=== PATIENT | female | born 1955 | race Hispanic/Latino ===

== ENCOUNTER 2020-05-30 | Emergency (ER) | payer MEDICARE, MEDICAID ==
[~2020-05-30] MED LIST: ALBUTEROL108 MCG/AC IN; ALENDRONATE70 MG PO; ASPIRINCHW 81MG PO; CELEBREX200 MG PO; CLARITIN10 M1 OR; COZAAR25 MG PO; DITROPAN5 MG/TA1 PO; FLOVENT HFA44 MCG IN; GABAPENTIN300 MG OR; GLUCOPHAGE500 MG OR; IPRATROPIU0.5 MG/3 M IN; LEVAQUIN750 MG PO; LIPITOR10 M1 PO; METFORMIN500 M2 OR; METFORMIN500 M2 PO; METFORMIN500 MG PO; NAPROSYN500 MG OR; NEBULIZE4 IN; OMNICEF300 MG PO; OXYBUTYNIN5 M1 PO; PREDNISONE10 MG PO; PRILOSEC40 MG PO; PROVENTIL IN; PROVENTIL0.083 % IN; QVAR40 MCG IN; VENTOLIN HFA IN; VESICARE5 MG PO; ZITHROMAX500 MG PO
[2020-05-30 14:11] LABS: GFR > 60 ML/MIN (>=60 (CALC)); GFR FOR AFR.AMER. > 60 ML/MIN (>=60 (CALC)); HEMATOCRIT 45.7 % (37.0-47.0); MEAN CORPUSCULAR HGB 28.8 pG CALC (26.0-32.0); MEAN CORPUSCULAR HGB CONC 25.6 g/dL CAL (32.0-36.0); NEUT# 11.58 thou/uL (2.00-7.15); RED BLOOD COUNT 4.06 mill/uL (4.20-5.60); RED CELL DISTRI WIDTH 14.5 % (11.5-15.5)
[2020-05-30 14:17] LABS: HEMOGLOBIN 11.7 g/dl (12.0-16.0); IMMATURE GRANULOCYTES 6.9 % (0.0-5.0); MEAN CELL VOLUME 112.6 fL CALC (80.0-100.0)
[2020-05-30 14:28] LABS: INTERNATIONAL NORMALIZED RATIO 1.1 RATIO (0.7-1.3); PROTHROMBIN TIME 11.6 SECONDS (9.0-12.5)
[2020-05-30 15:57] LABS: ALKALINE PHOSPHATASE 75 u/l (38-126); ANION GAP 13 (6-22 (CALC)); BILIRUBIN, TOTAL 0.7 mg/dL (0.0-1.4); BUN 15 mg/dL (8-23); BUN/CREATININE RATIO 24 (12-20 (CALC)); CARBON DIOXIDE 38 mmol/l (22-30); CHLORIDE 91 mmol/l (95-108); CREATININE 0.6 mg/dL (0.5-1.0); GFR > 60 ML/MIN (>=60 (CALC)); GFR FOR AFR.AMER. > 60 ML/MIN (>=60 (CALC)); POTASSIUM 4.5 mmol/l (3.5-5.1); SODIUM 137 mmol/l (137-146)
[2020-05-30 16:06] LABS: ALBUMIN 3.1 g/dL (3.2-5.0); SGOT/AST 118 u/l (9-36); TOTAL PROTEIN 6.2 g/dL (6.3-8.2)
== END 2020-05-30 16:00 | disposition short-term general hospital (02) ==
PROVIDERS: Family Medicine
PROC: 06HY33Z Insertion of Infusion Device into Lower Vein, Percutaneous Approach (ICD-10-PCS; principal; 2020-05-30)
PROC: 0BH17EZ Insertion of Endotracheal Airway into Trachea, Via Natural or Artificial Opening (ICD-10-PCS; 2020-05-30)
PROC: 0T9B70Z Drainage of Bladder with Drainage Device, Via Natural or Artificial Opening (ICD-10-PCS; 2020-05-30)
DX: A41.9 Sepsis, unspecified organism (principal); R65.20 Severe sepsis without septic shock; I46.8 Cardiac arrest due to other underlying condition; J18.9 Pneumonia, unspecified organism; J44.0 Chronic obstructive pulmonary disease with (acute) lower respiratory infection; I10 Essential (primary) hypertension; E11.9 Type 2 diabetes mellitus without complications; Z87.01 Personal history of pneumonia (recurrent); Z79.84 Long term (current) use of oral hypoglycemic drugs; Z20.822 Contact with and (suspected) exposure to COVID-19
CPT/HCPCS: Q9967

== ENCOUNTER 2020-12-10 15:30 | Emergency (ER) | payer MEDICARE, MEDICAID ==
[~2020-12-10] VITALS: Ht 165.1 cm; Wt 79.0 kg
[2020-12-10 16:30] LABS: HEMATOCRIT 45.2 % (37.0-47.0); HEMOGLOBIN 13.1 g/dl (12.0-16.0); IMMATURE GRANULOCYTES 0.5 % (0.0-5.0); MEAN CORPUSCULAR HGB 29.6 pG CALC (26.0-32.0); NEUT# 8.43 thou/uL (2.00-7.15); RED BLOOD COUNT 4.42 mill/uL (4.20-5.60); RED CELL DISTRI WIDTH 13.8 % (11.5-15.5)
[2020-12-10 16:33] LABS: MEAN CELL VOLUME 102.3 fL CALC (80.0-100.0)
[2020-12-10 16:50] LABS: ALKALINE PHOSPHATASE 86 u/l (38-126); BILIRUBIN, TOTAL 0.9 mg/dL (0.0-1.4); BUN 17 mg/dL (8-23); BUN/CREATININE RATIO 31 (12-20 (CALC)); CHLORIDE 93 mmol/l (95-108); CREATININE 0.6 mg/dL (0.5-1.0); GFR > 60 ML/MIN (>=60 (CALC)); GFR FOR AFR.AMER. > 60 ML/MIN (>=60 (CALC)); POTASSIUM 4.7 mmol/l (3.5-5.1); SGOT/AST 71 u/l (9-36); SODIUM 139 mmol/l (137-146)
[2020-12-10 16:56] LABS: ANION GAP 14 (6-22 (CALC)); CARBON DIOXIDE 37 mmol/l (22-30)
[2020-12-10 17:09] LABS: ALBUMIN 4.1 g/dL (3.2-5.0); TOTAL PROTEIN 8.6 g/dL (6.3-8.2)
[2020-12-10] MEDS ORDERED: MEDDOSEPAK PO (17:27)
[2020-12-10 18:05] VITALS: BP 133/64
== END 2020-12-10 18:05 | disposition home or self-care (01) ==
LOC: ED 15:30
DX: J45.901 Unspecified asthma with (acute) exacerbation (principal); J96.12 Chronic respiratory failure with hypercapnia; J96.11 Chronic respiratory failure with hypoxia; E11.9 Type 2 diabetes mellitus without complications; I10 Essential (primary) hypertension; J44.9 Chronic obstructive pulmonary disease, unspecified; Z99.81 Dependence on supplemental oxygen; Z20.822 Contact with and (suspected) exposure to COVID-19

== ENCOUNTER 2021-01-25 22:48 | Inpatient (IN) | payer MEDICARE, MEDICAID ==
[~2021-01-25] VITALS: Ht 152.4 cm; Wt 106.3 kg
[~2021-01-25 22:48] MED LIST changes: +MEDDOSEPAK PO
[2021-01-25 23:42] LABS: HEMATOCRIT 50.7 % (37.0-47.0); HEMOGLOBIN 13.5 g/dl (12.0-16.0); MEAN CORPUSCULAR HGB 29.2 pG CALC (26.0-32.0); MEAN CORPUSCULAR HGB CONC 26.6 g/dL CAL (32.0-36.0); NEUT# 11.21 thou/uL (2.00-7.15); RED BLOOD COUNT 4.63 mill/uL (4.20-5.60); RED CELL DISTRI WIDTH 14.6 % (11.5-15.5)
[2021-01-25 23:45] LABS: IMMATURE GRANULOCYTES 6.9 % (0.0-5.0); MEAN CELL VOLUME 109.5 fL CALC (80.0-100.0)
[2021-01-25 23:54] LABS: ALBUMIN 3.6 g/dL (3.2-5.0); ALKALINE PHOSPHATASE 109 u/l (38-126); AMYLASE 88 u/l (30-110); BILIRUBIN, TOTAL 0.6 mg/dL (0.0-1.4); BUN 20 mg/dL (8-23); BUN/CREATININE RATIO 45 (12-20 (CALC)); CHLORIDE 88 mmol/l (95-108); CREATININE 0.4 mg/dL (0.5-1.0); GFR > 60 ML/MIN (>=60 (CALC)); GFR FOR AFR.AMER. > 60 ML/MIN (>=60 (CALC)); LIPASE 61 u/l (23-300); POTASSIUM 4.9 mmol/l (3.5-5.1); SGOT/AST 55 u/l (9-36); SODIUM 141 mmol/l (137-146); TOTAL PROTEIN 7.9 g/dL (6.3-8.2)
[2021-01-26] VITALS (11 sets, daily range): BP systolic 99–134; BP diastolic 44–73
[2021-01-26] LABS: ANION GAP 5 (6-22 (CALC))
[2021-01-26 00:01] LABS: ACT PARTIAL THROMBO TIME 24.3 SECONDS (20.0-32.5); INTERNATIONAL NORMALIZED RATIO 1.1 RATIO (0.7-1.3)
[2021-01-26 00:02] LABS: CARBON DIOXIDE 53 mmol/l (22-30)
[2021-01-26 00:04] LABS: MYOGLOBIN 15 ng/mL (0 - 62)
[2021-01-26 03:41] LABS: URINE BILIRUBIN - DIPSTICK NEGATIVE (NEGATIVE); URINE BLOOD DIPSTICK NEGATIVE (NEGATIVE); URINE COLOR YELLOW; URINE GLUCOSE - DIPSTICK NEGATIVE (NEGATIVE); URINE KETONE NEGATIVE (NEGATIVE); URINE LEUK ESTERASE NEGATIVE (NEGATIVE); URINE PH 5.5 (4.5-8.0); URINE PROTEIN - DIPSTICK 30 mg/dL (NEG-TRACE); URINE SPECIFIC GRAVITY >=1.030; URINE UROBILINOGEN - DIPSTICK 0.2 E.U./dL (0.2)
[2021-01-26 03:47] LABS: URINE NITRITE - DIPSTICK POSITIVE (Negative)
[2021-01-26 03:49] LABS: URINE BACTERIA MANY hpf; URINE MUCUS FEW hpf (NONE-FEW); URINE SQUAMOUS EPITHELIAL CELL FEW EPI/hpf (0-FEW)
[2021-01-26] MEDS ORDERED: MEVACOR10 MG PO (11:53)
[2021-01-26] MEDS ORDERED: METFORMIN500 M2 PO (11:53)
[2021-01-26] MEDS ORDERED: LORATADINE10 M1 PO (11:53)
[2021-01-26] MEDS ORDERED: PROVENTIL108 MCG/AC PO (11:54)
[2021-01-26] MEDS ORDERED: COZAAR25 MG PO (11:54)
[2021-01-26] MEDS ORDERED: IPRATROPIU0.5 MG/3 M IN (11:55)
[2021-01-26] MEDS ORDERED: ALLERGY NA50 MCG/ACT NS (12:03)
[2021-01-26] MEDS ORDERED: SOLIFENACIN 5 MG PO (12:03)
[2021-01-27] VITALS (23 sets, daily range): BP systolic 122–179; BP diastolic 59–91
[2021-01-27 05:22] LABS: HEMOGLOBIN 12.4 g/dl (12.0-16.0); MEAN CORPUSCULAR HGB 29.1 pG CALC (26.0-32.0); MEAN CORPUSCULAR HGB CONC 28.7 g/dL CAL (32.0-36.0); RED BLOOD COUNT 4.26 mill/uL (4.20-5.60); RED CELL DISTRI WIDTH 15.8 % (11.5-15.5)
[2021-01-27 05:23] LABS: HEMATOCRIT 43.2 % (37.0-47.0); MEAN CELL VOLUME 101.4 fL CALC (80.0-100.0)
[2021-01-27 05:39] LABS: BUN 15 mg/dL (8-23); BUN/CREATININE RATIO 24 (12-20 (CALC)); CHLORIDE 93 mmol/l (95-108); CREATININE 0.6 mg/dL (0.5-1.0); GFR > 60 ML/MIN (>=60 (CALC)); GFR FOR AFR.AMER. > 60 ML/MIN (>=60 (CALC)); MAGNESIUM 1.8 mg/dL (1.6-2.3); SODIUM 143 mmol/l (137-146)
[2021-01-27 05:48] LABS: ANION GAP 8 (6-22 (CALC)); CARBON DIOXIDE 46 mmol/l (22-30); POTASSIUM 3.7 mmol/l (3.5-5.1)
[2021-01-28] VITALS (15 sets, daily range): BP systolic 98–150; BP diastolic 50–80
[2021-01-28 05:51] LABS: MEAN CELL VOLUME 105.8 fL CALC (80.0-100.0); MEAN CORPUSCULAR HGB 28.8 pG CALC (26.0-32.0); MEAN CORPUSCULAR HGB CONC 27.3 g/dL CAL (32.0-36.0); RED BLOOD COUNT 4.16 mill/uL (4.20-5.60); RED CELL DISTRI WIDTH 16.1 % (11.5-15.5)
[2021-01-28 06:23] LABS: BUN 18 mg/dL (8-23); BUN/CREATININE RATIO 28 (12-20 (CALC)); CHLORIDE 95 mmol/l (95-108); CREATININE 0.6 mg/dL (0.5-1.0); GFR > 60 ML/MIN (>=60 (CALC)); GFR FOR AFR.AMER. > 60 ML/MIN (>=60 (CALC)); SODIUM 145 mmol/l (137-146)
[2021-01-28 06:29] LABS: ANION GAP 5 (6-22 (CALC)); POTASSIUM 3.8 mmol/l (3.5-5.1)
[2021-01-28 06:41] LABS: CARBON DIOXIDE 49 mmol/l (22-30)
[2021-01-29] VITALS: BP 137/80
[2021-01-29 04:00] VITALS: BP 124/73
[2021-01-29 06:27] LABS: BUN 20 mg/dL (8-23); BUN/CREATININE RATIO 30 (12-20 (CALC)); CHLORIDE 92 mmol/l (95-108); CREATININE 0.7 mg/dL (0.5-1.0); GFR > 60 ML/MIN (>=60 (CALC)); GFR FOR AFR.AMER. > 60 ML/MIN (>=60 (CALC)); MAGNESIUM 2.1 mg/dL (1.6-2.3); POTASSIUM 3.6 mmol/l (3.5-5.1); SODIUM 145 mmol/l (137-146)
[2021-01-29 06:28] LABS: HEMATOCRIT 45.1 % (37.0-47.0); HEMOGLOBIN 12.4 g/dl (12.0-16.0); MEAN CELL VOLUME 106.1 fL CALC (80.0-100.0); MEAN CORPUSCULAR HGB 29.2 pG CALC (26.0-32.0); MEAN CORPUSCULAR HGB CONC 27.5 g/dL CAL (32.0-36.0); RED BLOOD COUNT 4.25 mill/uL (4.20-5.60); RED CELL DISTRI WIDTH 15.6 % (11.5-15.5)
[2021-01-29 06:33] LABS: ANION GAP 8 (6-22 (CALC))
[2021-01-29 06:53] LABS: CARBON DIOXIDE 49 mmol/l (22-30)
[2021-01-29 07:30] VITALS: BP 120/73
[2021-01-29] MEDS ORDERED: PREDNISONE20 MG PO (12:23)
[2021-01-29] MEDS ORDERED: OMNICEF300 MG PO (12:24)
[2021-01-29] MEDS ORDERED: ZITHROMAX250 MG PO (12:25)
== END 2021-01-29 14:20 | disposition home or self-care (01) | DRG 193 ==
LOC: ED 22:48 → ED-I 01-26 03:30 → ED 01-26 03:55 → ICU 01-26 03:56 → MS2 01-28 17:45
PROVIDERS: Family Medicine; ADMIT Hospitalist; ATTEND Hospitalist
PROC: 5A09357 Assistance with Respiratory Ventilation, Less than 24 Consecutive Hours, Continuous Positive Airway Pressure (ICD-10-PCS; principal; 2021-01-25)
PROC: 0T9B70Z Drainage of Bladder with Drainage Device, Via Natural or Artificial Opening (ICD-10-PCS; 2021-01-26)
PROC: 06HY33Z Insertion of Infusion Device into Lower Vein, Percutaneous Approach (ICD-10-PCS; 2021-01-26)
DX: J18.9 Pneumonia, unspecified organism (principal); J96.22 Acute and chronic respiratory failure with hypercapnia; J96.21 Acute and chronic respiratory failure with hypoxia; J44.0 Chronic obstructive pulmonary disease with (acute) lower respiratory infection; E66.2 Morbid (severe) obesity with alveolar hypoventilation; J45.901 Unspecified asthma with (acute) exacerbation; E87.2 Acidosis; N39.0 Urinary tract infection, site not specified; Z68.43 Body mass index [BMI] 50.0-59.9, adult; I10 Essential (primary) hypertension; E11.9 Type 2 diabetes mellitus without complications; K21.9 Gastro-esophageal reflux disease without esophagitis; B96.20 Unspecified Escherichia coli [E. coli] as the cause of diseases classified elsewhere; Z99.81 Dependence on supplemental oxygen; Z87.01 Personal history of pneumonia (recurrent); Z78.1 Physical restraint status; Z79.84 Long term (current) use of oral hypoglycemic drugs; Z20.822 Contact with and (suspected) exposure to COVID-19
CPT/HCPCS: J1650; J2060; Q9967; S0164; S0166

== ENCOUNTER 2021-01-30 19:08 | Inpatient (IN) | payer MEDICARE, MEDICAID ==
[~2021-01-30] VITALS: Ht 152.4 cm; Wt 102.0 kg
[~2021-01-30 19:08] MED LIST changes: +ALLERGY NA50 MCG/ACT NS; +LORATADINE10 M1 PO; +MEVACOR10 MG PO; +PREDNISONE20 MG PO; +PROVENTIL108 MCG/AC PO; +SOLIFENACIN 5 MG PO; +ZITHROMAX250 MG PO
--- NOTE | 2021-01-30 19:08 | NUR ---
PT TO ROOM 6 VIA EMS STRECTHER ON RESP DISTRESS PT OBTUNDED, MD AT BEDSIDE NO IV ACCESS, ALL MONITOROING EQUIPMENT APPLIED AND WILL ATTEMPT IV ACCESS RT PAGED AND EN ROUTE TO UNIT.
[2021-01-30 19:57] LABS: HEMOGLOBIN 13.5 g/dl (12.0-16.0); IMMATURE GRANULOCYTES 2.7 % (0.0-5.0); MEAN CORPUSCULAR HGB 29.5 pG CALC (26.0-32.0); MEAN CORPUSCULAR HGB CONC 26.2 g/dL CAL (32.0-36.0); NEUT# 10.63 thou/uL (2.00-7.15); RED BLOOD COUNT 4.57 mill/uL (4.20-5.60); RED CELL DISTRI WIDTH 15.1 % (11.5-15.5)
[2021-01-30 19:59] LABS: HEMATOCRIT 51.6 % (37.0-47.0); MEAN CELL VOLUME 112.9 fL CALC (80.0-100.0)
--- NOTE | 2021-01-30 20:00 | NUR ---
PT REMAINS OBTUNDED BI-PAP REMAINS IN PLACE O2 SATS 99%. PLANNED ADMISSION, MORRIS CATH INSERTED AND IMMEDIATE RETURN OF CLEAR YELLOW URINE,CATH SECURITY DEVICE ATTACHED TO LEFT UPPER THIGH. PT TOLERATED WITHOUT INCIDENT.
[2021-01-30 20:12] LABS: ALBUMIN 3.5 g/dL (3.2-5.0); ALKALINE PHOSPHATASE 87 u/l (38-126); BILIRUBIN, TOTAL 0.6 mg/dL (0.0-1.4); BUN 33 mg/dL (8-23); BUN/CREATININE RATIO 55 (12-20 (CALC)); CHLORIDE 90 mmol/l (95-108); CREATININE 0.6 mg/dL (0.5-1.0); GFR > 60 ML/MIN (>=60 (CALC)); GFR FOR AFR.AMER. > 60 ML/MIN (>=60 (CALC)); SGOT/AST 61 u/l (9-36); SODIUM 143 mmol/l (137-146); TOTAL PROTEIN 7.2 g/dL (6.3-8.2)
[2021-01-30 20:20] LABS: ANION GAP 6 (6-22 (CALC)); POTASSIUM 4.7 mmol/l (3.5-5.1)
[2021-01-30 20:21] LABS: CARBON DIOXIDE 52 mmol/l (22-30)
[2021-01-30 20:24] LABS: MYOGLOBIN 32 ng/mL (0 - 62)
[2021-01-30 20:25] LABS: URINE BILIRUBIN - DIPSTICK NEGATIVE (NEGATIVE); URINE BLOOD DIPSTICK NEGATIVE (NEGATIVE); URINE COLOR YELLOW; URINE GLUCOSE - DIPSTICK NEGATIVE (NEGATIVE); URINE KETONE NEGATIVE (NEGATIVE); URINE LEUK ESTERASE NEGATIVE (NEGATIVE); URINE PROTEIN - DIPSTICK 30 mg/dL (NEG-TRACE); URINE SPECIFIC GRAVITY >=1.030; URINE UROBILINOGEN - DIPSTICK 0.2 E.U./dL (0.2)
[2021-01-30 20:28] LABS: URINE NITRITE - DIPSTICK NEGATIVE (Negative); URINE RBC 0-2 RBC/hpf (0-5); URINE WBC 0-2 WBC/hpf (0-5)
[2021-01-30 20:29] LABS: URINE SQUAMOUS EPITHELIAL CELL FEW EPI/hpf (0-FEW)
--- NOTE | 2021-01-30 21:05 | NUR ---
PT RESTING, TOLERATING BI PAP AND NO S/S OF DISTRESS NOTED, FAMILY LEFT FROM WAITING ROOM.
--- NOTE | 2021-01-30 22:10 | NUR ---
PT RESTING WITH EYES CLSOED, NO CHANGES NOTED, NO S/S OF DISTRESS.
--- NOTE | 2021-01-30 23:00 | NUR ---
PT RESTING, NO CHANGES TO RESPIRATORY STATUS, CONTINUES TO TOLERATE BI PAP W/O INCIDENT.
[2021-01-31] VITALS (22 sets, daily range): BP systolic 93–146; BP diastolic 53–79
--- NOTE | 2021-01-31 00:17 | NUR ---
PLANNED ADMISSION, IVF INFUSING AT [facility] VIA IO IN R TIB PLATEAU. LASI ADMINISTERED EARLIER WITH GOOD URINE OUTPUT, PT ALSO GIVEN ABT ORDERED PT HAS 20G LAC TOLERAT AZITHROMYCIN VIA THIS SITE WITHOUT INCIDENT,
--- NOTE | 2021-01-31 01:26 | NUR ---
2100 ML CLEAR YELLOW URINE DUMPED FOM MORRIS PT AWAKE REQUESTING WATER. EDUCATED REGARDING THE IMPORTANCE OF KEEPING BI PAP ON AND LFUID INTAKE REDUCTION RELATED TO DX OF PULMONARY EDEMA.
--- NOTE | 2021-01-31 01:47 | NUR ---
REPORT CALLED TO ICU BED 5 ASSIGNED.
--- NOTE | 2021-01-31 02:10 | NUR ---
PT RESTING WITH EYES CLOSED, VS STABLE NO S/S OF DISTRESS CONTINUES TO TOLERATE BIPAP
--- NOTE | 2021-01-31 02:10 | NUR ---
RECEIVED PATIENT TO ICU 5 VIA STRETCHER ON BIPAP. SETTING OF 20/10, RATE OF 20, FIO2 100%; SATURATION OF 95%. PATIENT AWAKE, ORIENTED TO SELF. VSS. LUNGS ARE DIMINISHED. HEART SOUNDS REGULAR. ABDOMEN SOFT, DISTENDED NON TENDER TO TOUCH; BOWEL SOUNDS HYPOACTIVE. PULSES WEAK BILATERALLY, BRUISING NOTED OF THE HANDS BILATERALLY, COOL TO TOUCH. RIGHT TIBIAL IO, PATENT; DRESSING CLEAN AND INTACT. GENERALIZED EDEMA NOTED. MORRIS TO GRAVITY CLEAR KELSEY URINE. PATIENT DENIES PAIN AT THIS TIME, NO DISTRESS NOTED. CALL LIGHT WITHIN REACH. BED IN LOW POSITION, LOCK AND ALARM ACTIVATED.
--- NOTE | 2021-01-31 02:15 | NUR ---
PT TRANSPORTED TO ICU BED 5 VIA STRETCHER WITH R.T. ASSIST. ALL BELONGINGS SENT WITH PATIENT.
--- NOTE | 2021-01-31 04:54 | NUR ---
RESTING QUIETLY IN BED, EYES CLOSED. SATURATION 94% ON BIPAP, TOLERATING WELL. NON-VERBAL BEHAVIOR DOES NOT REFLECT PAIN. VSS.
[2021-01-31 05:45] LABS: HEMOGLOBIN 12.4 g/dl (12.0-16.0); MEAN CELL VOLUME 108.7 fL CALC (80.0-100.0); MEAN CORPUSCULAR HGB 29.3 pG CALC (26.0-32.0); RED BLOOD COUNT 4.23 mill/uL (4.20-5.60)
[2021-01-31 05:56] LABS: BUN 28 mg/dL (8-23); BUN/CREATININE RATIO 52 (12-20 (CALC)); CHLORIDE 86 mmol/l (95-108); CREATININE 0.5 mg/dL (0.5-1.0); GFR > 60 ML/MIN (>=60 (CALC)); GFR FOR AFR.AMER. > 60 ML/MIN (>=60 (CALC)); MAGNESIUM 1.8 mg/dL (1.6-2.3); POTASSIUM 3.8 mmol/l (3.5-5.1); SODIUM 142 mmol/l (137-146)
[2021-01-31 06:03] LABS: ANION GAP 4 (6-22 (CALC))
[2021-01-31 06:04] LABS: CARBON DIOXIDE 56 mmol/l (22-30)
--- NOTE | 2021-01-31 06:55 | NUR ---
TITRATED NIV PARAMTERS PER PT SPO2 AND ASSESSMENT. IVA WELL AT THIS TIME.
--- NOTE | 2021-01-31 07:25 | NUR ---
pt awake in bed; no apparent distress noted; pt offers no complaints; assessment completed at this time; pt alert to person only; denies pain; no n/v noted; resp even and unlabored; lungs clear/diminished; skin color wnl; bipap intact with settings of 18/8, rate 20, 50% FiO2; hr reg; strong pulses; no edema noted to lower extremities; bilat hands noted swollen; abd soft with bs present; no bm noted per customs entry writer; zimmer to gravity draining clear yellow urine; #20 saline locked to lac; IO present to right leg; no redness or edema noted at site; bruising noted to hands; plan of care/ am meds explained; call light within reach; will continue to monitor
--- NOTE | 2021-01-31 08:02 | NUR ---
resting in bed with eyes closed; bipap intact and maintained; zimmer to gravity; sr on monitor; call light within reach
--- NOTE | 2021-01-31 08:34 | NUR ---
pt has removed bipap mask; srt with pvc on monitor; o2 sat dropped to 67%; staff attempting to reapply mask; pt grabbing staff hands and yelling "I want to go home"; mask reapplied and pt recovered quickly; RT at bedside to assist
--- NOTE | 2021-01-31 08:49 | NUR ---
placed pt on hhfnc. initiated at 40l and 100% and titrated as per pt comfort and spo2. humberto well at this time. oil rig roughneck to titrte as needed. with goal to wean to nasal cannula.
--- NOTE | 2021-01-31 08:55 | NUR ---
am meds explained and administered; #20 to rac leaking when flushed; pt admits to pain at site, site removed with catheter tip intact; pt screams out loudly when IO is flushed; pt request site to be removed; 2 unsuccessful attempts made per this verse writer; #22 in lfa x2 attempts per SHAHNAZ Peralta; will continue to monitor
--- NOTE | 2021-01-31 09:01 | NUR ---
Dr Watt present at bedside to assess pt and discuss plan of care
--- NOTE | 2021-01-31 10:00 | NUR ---
awake in bed eating breakfast; pt has removed vapotherm, desats very quickly to low 70s; reapplied; st on monitor; zimmer to gravity; call light within reach; will continue to monitor
--- NOTE | 2021-01-31 11:04 | NUR ---
nad. vss. pt asking if is coming
--- NOTE | 2021-01-31 11:13 | NUR ---
pt continues to remove o2/vapotherm; o2 sat drop to 60s; staff x2 at bedside attempting to reapply; pt striking out at staff; o2 reapplied and pt immediately removes it; Dr Watt called per science writer; restraints to be initiated;
--- NOTE | 2021-01-31 11:45 | NUR ---
pt awake in bed; repositioned per self; meal set up; Dr Watt present at bedside; zimmer to gravity; st on monitor; vapotherm intact
--- NOTE | 2021-01-31 12:00 | NUR ---
pt found to have removed vapotherm; o2 sat down to 44%; reapplied with quick recovery; will continue to monitor
--- NOTE | 2021-01-31 12:10 | NUR ---
spouse returned call to this job specification writer; spouse updated on pt condition/status; spouse informed of need to restrain pt due to continuously removing oxygen and becoming combative with staff when attempting to reapply; spouse informed of visitation policy, states "I don't have time today"; call transferred to portable phone, spouse speaking with patient; will continue to monitor
--- NOTE | 2021-01-31 12:30 | NUR ---
pt has removed o2; o2 sat 54%; reapplied; restraints placed to bilat wrist
--- NOTE | 2021-01-31 13:00 | NUR ---
pt has managed to partially remove vapotherm; reapplied; o2 sat very slow to recover; RT notified; vapotherm titrated; restraints reinforced; repositioned; po fluids given
--- NOTE | 2021-01-31 13:51 | NUR ---
titrated paramters as pe pt spo2. spo2 decreased as pt falling asleep. pt c hx of juana.
--- NOTE | 2021-01-31 14:10 | NUR ---
awake in bed; son Chivo present at bedside; no apparent distress noted; restraints intact and maintained; po fluids provided; st on monitor; iv intact; zimmer to gravity; vapotherm intact and maintained; call light within reach; will continue to monitor
--- NOTE | 2021-01-31 16:00 | NUR ---
pt awake in bed; yells out frequently; po fluids provided; sr/st on monitor; restraints continued; restraints released for nursing care/rom; pt immed attempts to get out of bed to right side; repositioned; o2 per vapotherm; will continue to monitor
--- NOTE | 2021-01-31 16:35 | NUR ---
pt noted SVT 160s; staff at bedside; pt able to blow through straw and hr converted to nsr after approx 1 minute; pt with complaints of chest pain afterwards; no distress noted; Dr Watt informed of above findings and orders received;
--- NOTE | 2021-01-31 17:11 | NUR ---
PT C NAD. VSS. EKG PERFORMED PER PT C/O C.P NOW STATES RESOLVED. DIRECTOR WEB TO MONITOR.
--- NOTE | 2021-01-31 18:05 | NUR ---
awake in bed eating dinner; no apparent distress noted; restraint continued; st on monitor; zimmer to gravity; call light within reach
--- NOTE | 2021-01-31 18:50 | NUR ---
GERRI RECEIVED FROM SHAHNAZ RUBIO.
--- NOTE | 2021-01-31 20:32 | NUR ---
ASSESSMENT COMPLETE. PATIENT RESTING IN BED, ALERT AND ORIENTED. VSS. BILATERAL SOFT WRIST RESTRAINTS APPLIED WITH QUICK RELEASE KNOT AND 2 FINGERWIDTHS LOOSE. MORRIS TO GRAVITY, PATENT. NO C/O PAIN AT THIS TIME. CALL LIGHT WITHIN REACH.
[2021-02-01] VITALS (11 sets, daily range): BP systolic 110–137; BP diastolic 56–70
--- NOTE | 2021-02-01 00:24 | NUR ---
PATIENT RESTING QUIETLY. RESTRAINTS RELEASED TO ASSIST WITH RANGE OF MOTION, PATIENT TOLERATED FAIR. DENIES PAIN AT THIS TIME, CALL LIGHT WITHIN REACH.
--- NOTE | 2021-02-01 02:10 | NUR ---
RESTING QUIETLY IN BED EYES CLOSED. SATURATION 94% ON VAPOTHERM, TOLERATING WELL NO DISTRESS NOTED.
--- NOTE | 2021-02-01 04:06 | NUR ---
PATIENT RESTING QUIETLY, EYES CLOSED. PATIENT AWAKENED, WRIST RESTRAINTS RELEASED TO PERFORM RANGE OF MOTION THEN RE-APPLIED. SATURATION 95% ON VAPOTHERM, TOLERATING WELL. CALL LIGHT WITHIN REACH.
[2021-02-01 06:19] LABS: HEMATOCRIT 43.9 % (37.0-47.0); HEMOGLOBIN 12.4 g/dl (12.0-16.0); MEAN CELL VOLUME 102.3 fL CALC (80.0-100.0); MEAN CORPUSCULAR HGB 28.9 pG CALC (26.0-32.0); MEAN CORPUSCULAR HGB CONC 28.2 g/dL CAL (32.0-36.0); RED BLOOD COUNT 4.29 mill/uL (4.20-5.60); RED CELL DISTRI WIDTH 15.4 % (11.5-15.5)
[2021-02-01 06:29] LABS: BUN 24 mg/dL (8-23); BUN/CREATININE RATIO 47 (12-20 (CALC)); CHLORIDE 77 mmol/l (95-108); CREATININE 0.5 mg/dL (0.5-1.0); GFR > 60 ML/MIN (>=60 (CALC)); GFR FOR AFR.AMER. > 60 ML/MIN (>=60 (CALC)); MAGNESIUM 1.7 mg/dL (1.6-2.3); SODIUM 138 mmol/l (137-146)
[2021-02-01 06:41] LABS: ANION GAP 1 (6-22 (CALC))
[2021-02-01 06:42] LABS: CARBON DIOXIDE 63 mmol/l (22-30)
--- NOTE | 2021-02-01 07:34 | NUR ---
PT REPORT RECEIVED FROM Yan CHAVIS RN. PT AWAKE AND ALERT, CONFUSED. CRITICAL RESULT OF CO2 CALLED TO DR. KAUR. NO CHANGE TO POC. PT VSS, RESTRAINTS REMAIN IN PLACE, NEUROVASCULAR IS WNL. WILL CONTINUE TO MONITOR SAFETY.
--- NOTE | 2021-02-01 10:00 | NUR ---
PT RESTING IN BED SEMI-FOWLERS. RESTRAINTS IN PLACE. MD IN TO SEE PT. ZYPREXA ADDED TO EMAR FOR AGITATION. VSS. PT OXYGEN REMAINS IN PLACE. WILL CONTINUE TO MONITOR.
--- NOTE | 2021-02-01 12:36 | NUR ---
ALL CHARTING FROM [id number] SHOULD BE UNDER SHAHNAZ RUBIO. NOT SHAHNAZ MARQUEZ.
--- NOTE | 2021-02-01 13:00 | NUR ---
PT YELLING FROM ROOM FOR HELP TO USE BEDPAN. PT PLACED ON BED WOLFF. UNCOOPERATIVE WITH TURNING, TRYING TO TAKE LEGS OOB AND GET UP. WILL CONTINUE TO MONITOR SAFETY.
--- NOTE | 2021-02-01 13:47 | NUR ---
PT ASKED IF COMPLETE WITH BED WLOFF, PT STATES "NO, I DONT WANT TO POOP" UNCOOPERATIVE OF ASSISTING WITH REMOVAL, STATES "NO, JUST LEAVE IT THERE, IT HAS A HOLE." PT REMOVED FROM BED WOLFF. EDUCATED OF PRESSURE ULCER PREVENTION. WILL NEED CONTINUEAL REINFORCEMENT.
--- NOTE | 2021-02-01 14:13 | NUR ---
FAMILY AT BS FOR APPROXIMATELY 10 MINUTES. DENIES NEED FOR UPDATE TO POC. PT REMAINS IN BED, CALM. WILL CONTINUE TO MONITOR SAFETY.
--- NOTE | 2021-02-01 17:59 | NUR ---
PT REFUSED TO EAT DINNER MEAL. STARTED YELLING AND SCREAMING "I WANT TO GO HOME!" PT UNRECONCILABLE AT THIS TIME. REFUSING ALL MEALS TODAY. SAFETY REVIEWED, RESTRAINTS IN PLACE. WILL CONTINUE TO MONITOR SAFETY.
--- NOTE | 2021-02-01 18:45 | NUR ---
GERRI RECEIVED FROM SHAHNAZ RUBIO
--- NOTE | 2021-02-01 20:40 | NUR ---
ASSESSMENT COMPLETE. VSS. NO DISTRESS NOTED, DENIES PAIN AT THIS TIME. PATIENT WITH BILATERAL WRIST RESTRAINTS.
--- NOTE | 2021-02-01 23:45 | NUR ---
PATIENT FOUND WITH RIGHT WRIST RESTRAINT OFF AND REACHING TO REMOVE LEFT RESTRAINT. PATIENT HAS ALSO REMOVED HER NASAL CANNULA, SATURATION 87% . PATIENT STATES "I AM LEAVING AND GOING TO THE HOSPITAL I ALWAYS GO TO". REDIRECTON PROVIDED AND RESTRAINTS REAPPLIED.
[2021-02-02] VITALS (14 sets, daily range): BP systolic 88–157; BP diastolic 49–72
--- NOTE | 2021-02-02 03:50 | NUR ---
SATURATION DROPPED TO 81% UPON ARRIVAL TO ROOM, PATIENT LAYING IN BED VAPOTHERM IN PLACE. PATIENT OBTUNDED, SKIN APPEARANCE DUSKY AROUND NOSE AND MOUTH SATURATION CONSTANTLY DROPPING; RAPID RESPONSE CALLED. PATIENT PLACED ON BIPAP 18/10, RATE 24, O2 100%. SATURATION IMMEDIATELY DANNY TO 85 AND IMPROVING; WILL CONTINUE TO MONITOR.
--- NOTE | 2021-02-02 04:01 | NUR ---
RESPONDED TO RAPID RESPONSE. O2 SATS DROPPED BELOW 70. PLACED ON BIPAP.
--- NOTE | 2021-02-02 04:09 | NUR ---
SATURATION 96% ON BIPAP
[2021-02-02 05:32] LABS: HEMATOCRIT 47.2 % (37.0-47.0); HEMOGLOBIN 13.7 g/dl (12.0-16.0); MEAN CELL VOLUME 100.4 fL CALC (80.0-100.0); MEAN CORPUSCULAR HGB 29.1 pG CALC (26.0-32.0); RED BLOOD COUNT 4.7 mill/uL (4.20-5.60); RED CELL DISTRI WIDTH 15.6 % (11.5-15.5)
[2021-02-02 05:46] LABS: BUN 25 mg/dL (8-23); BUN/CREATININE RATIO 45 (12-20 (CALC)); CHLORIDE 78 mmol/l (95-108); CREATININE 0.6 mg/dL (0.5-1.0); GFR > 60 ML/MIN (>=60 (CALC)); GFR FOR AFR.AMER. > 60 ML/MIN (>=60 (CALC)); MAGNESIUM 1.9 mg/dL (1.6-2.3); POTASSIUM 3.6 mmol/l (3.5-5.1); SODIUM 138 mmol/l (137-146)
[2021-02-02 05:54] LABS: ANION GAP 6 (6-22 (CALC))
[2021-02-02 06:00] LABS: CARBON DIOXIDE 58 mmol/l (22-30)
--- NOTE | 2021-02-02 06:11 | NUR ---
PATIENT MANAGED TO GET BIPAP MASK OFF WHILE IN RESTRAINTS. SATURATION DOWN TO 85% LIPS DUSKY. WHILE REAPPLYING MASK PATIENT STATES "NO I DON'T WANT IT". DISCUSSED OPTION OF DNR WITH PATIENT AND THE NEED TO DISCUSS HER FINAL DECISION WITH PHYSICIAN AND FAMILY.
--- NOTE | 2021-02-02 07:10 | NUR ---
RESTING IN BED. CHEST RISING AND FALLING.
--- NOTE | 2021-02-02 07:20 | NUR ---
SOFT WRIST RESTRAINTS REMOVED.
--- NOTE | 2021-02-02 09:48 | NUR ---
SWITCHED FROM BIPAP TO VAPOTHERM 20L 90%
--- NOTE | 2021-02-02 11:19 | NUR ---
PT FOUND ON VAPOTHERM 20L @ 90%. SATS 94
--- NOTE | 2021-02-02 12:14 | NUR ---
SITTING UP HAVING LUNCH AT THIS TIME.
--- NOTE | 2021-02-02 12:57 | NUR ---
UP TO BSC WITH 2 PERSON ASSIST. LG BROWN FORMED STOOL NOTED.
--- NOTE | 2021-02-02 14:42 | NUR ---
IN VISITING AT BEDSIDE.
--- NOTE | 2021-02-02 15:15 | NUR ---
PRN CEPACOL GIVEN PER PT REQUEST.
--- NOTE | 2021-02-02 17:25 | NUR ---
REQUEST ANOTHER CEPACOL.
--- NOTE | 2021-02-02 18:05 | NUR ---
SITTING UP HAVING DINNER AT THIS TIME.
--- NOTE | 2021-02-02 21:31 | NUR ---
PT MEDICATED ORDERS PROVIDE WITH ANTIBIOTIC THERAPY AND NIGHT TIME MEDICATIONS. ASSISTED PT CLEAN UNDER ABD AND BREAST FOLDS AND APPLIED NYSTATIN TO FOLD AREA. THESE AREAS WERE CLEAN AND APPEARED HEALTHY SKIN/NON-REDDENED. PT LOC TO SELF, YEAR, CIRCUMSTANCE AND LOCATION. REPORTS FEELING MUCH BETTER THAN LAST NIGHT. PT REMAINS ON VAPO-THERM 70% AT THIS TIME.
--- NOTE | 2021-02-02 22:24 | NUR ---
pt called asking for a "blanket under her butt" pt positioned on pillow, she somewhat confused as to what we are doing, but agreed to keep pillow positioned to right side for awhile to relieve pressure. Refused to be further positioned. In high fowlers watching tv
[2021-02-03] VITALS (21 sets, daily range): BP systolic 84–190; BP diastolic 49–81
--- NOTE | 2021-02-03 | NUR ---
RESP IN ROOM PLACING PT ON BIPAP. PO FLUIDS PROVIDED PRIOR TO PLACEMENT.
--- NOTE | 2021-02-03 00:50 | NUR ---
PT OBSERVED PULLING ON BIPAP MASK CAUSING 02 SATS TO DROP TO 70'S, OXYGEN SAT LEVELS RECOVERED TO 90% PRIOR TO MY LEAVING THE ROOM. PT REMINDED THAT SHE NEEDS THIS ON. SHE WAS ALSO ASSISTED DRINKING WATER AT THIS TIME.
--- NOTE | 2021-02-03 03:45 | NUR ---
PT ATTEMPTING TO REMOVE BIPAP, I ASSISTED HER REPOSITIONING IT. PT IS LEFT CALMLY W/BIPAP ON.
--- NOTE | 2021-02-03 05:56 | NUR ---
PT IS SLEEPING, AWOKE TO MY TOUCH, RETURNED QUICKLY BACK TO SLEEP. BIPAP IN PLACE
[2021-02-03 06:26] LABS: HEMATOCRIT 44.3 % (37.0-47.0); HEMOGLOBIN 13.5 g/dl (12.0-16.0); IMMATURE GRANULOCYTES 0.6 % (0.0-5.0); MEAN CELL VOLUME 95.5 fL CALC (80.0-100.0); MEAN CORPUSCULAR HGB 29.1 pG CALC (26.0-32.0); MEAN CORPUSCULAR HGB CONC 30.5 g/dL CAL (32.0-36.0); NEUT# 8.98 thou/uL (2.00-7.15); RED BLOOD COUNT 4.64 mill/uL (4.20-5.60); RED CELL DISTRI WIDTH 15.6 % (11.5-15.5)
[2021-02-03 06:38] LABS: CREATININE 1.2 mg/dL (0.5-1.0); MAGNESIUM 1.8 mg/dL (1.6-2.3); POTASSIUM 3.2 mmol/l (3.5-5.1)
--- NOTE | 2021-02-03 07:28 | NUR ---
RECIEVED REPORT FROM OFF GOING NURSE. PT SWITCHED FROM BIPAP TO VAPOTHERM 20L 70%.
--- NOTE | 2021-02-03 07:44 | NUR ---
SITTING IN BED HAVING BREAKFAST.
--- NOTE | 2021-02-03 08:38 | NUR ---
DR DUARTE IN ROUNDING ON PT.
--- NOTE | 2021-02-03 09:51 | NUR ---
AM MEDS GIVEN PER EMAR TOLERATED WELL.
--- NOTE | 2021-02-03 10:11 | NUR ---
SITTING UP IN RECLINER AMBULATED TO RECLINER WITH STANDBY ASSIST.
--- NOTE | 2021-02-03 12:37 | NUR ---
placed on bipap while in recliner r/t dr yoder wanting an abg done while pt on bipap.
--- NOTE | 2021-02-03 14:24 | NUR ---
VISTING AT BEDSIDE. ABG DRAWN BY RT BIPAP REPLACED WITH NC HIGH FLOW AT 10L.
--- NOTE | 2021-02-03 14:33 | NUR ---
ABG DRAWN AFTER 1.5 HOURS ON BIPAP OF 22/10 60%. PT PLACED BACK ON 10L HFNC WITH SATS OF 94%.
--- NOTE | 2021-02-03 14:55 | NUR ---
UP TO BS WITHOUT ASSIST. NOW BACK IN BED.
--- NOTE | 2021-02-03 17:00 | NUR ---
SITTING UP IN BED WATCHING TELEVISION.
--- NOTE | 2021-02-03 18:08 | NUR ---
NO S/S OF DISTRESS NOTED. SITTING UP IN BED WATCHING TV.
--- NOTE | 2021-02-03 19:24 | NUR ---
PT ASSESSEMENT COMPLETED, DENIES ANY NEEDS AT THIS TIME. SHE IS SITTING UP IN BED WATCHING TV. 10LNC IN PLACE 02SAT 95%. NO S/O DISTRESS NOTED, PT LOCX3.
--- NOTE | 2021-02-03 21:37 | NUR ---
PT IS SELF REPOSITIONING IN THE BED, OXYGEN SAT LEVELS REMAINING STABLE ABOVE 92% ON 10LNC HIGH FLOW. PT MEDICATED ORDERS PROVIDE AND NYSTATIN POWDER APPLIED TO ABD AND BREAST FOLDS NEEDED.
[2021-02-04] VITALS (25 sets, daily range): BP systolic 82–115; BP diastolic 45–88
--- NOTE | 2021-02-04 | NUR ---
PT SLEEPING, AWAKES TO REPOSITION HERSELF AT TIMES, BIPAP IS ON AND OXYGEN SAT REMAIN STABLE AT THIS TIME. CALL LIGHT REMAINS W/IN REACH.
--- NOTE | 2021-02-04 02:15 | NUR ---
PT REPOSITIONING SELF CAUSING BIPAP TO SOUND, O2 SATS 98% AT THIS TIME, DENIES NEED FOR ASSISTANCE. PILLOWS ARE PROVIDED FOR POSITIONING AND COMFORT. CALL LIGHT W/IN REACH. LIGHTS ARE DOWN AND TV ON.
--- NOTE | 2021-02-04 05:30 | NUR ---
RESP TECH IN WITH PT OBTAINING BLOOD GAS DRAW. PT IS ON BIPAP AT THIS TIME.
[2021-02-04 07:01] LABS: ALBUMIN 3.5 g/dL (3.2-5.0); MAGNESIUM 1.9 mg/dL (1.6-2.3)
--- NOTE | 2021-02-04 07:14 | NUR ---
pt resting quietly on stretcher, no complaints at this time, alert/oriented x3, on high flow, call light within reach. sats96%
--- NOTE | 2021-02-04 07:26 | NUR ---
BIPAP STANDBY. PLACED ON 10L HFNC
--- NOTE | 2021-02-04 08:01 | NUR ---
PT SITTING UP IN BED, EATING BREAKFAST. DENIES ANY COMPLAINTS
[2021-02-04 09:11] LABS: ALBUMIN 3.4 g/dL (3.2-5.0); ALKALINE PHOSPHATASE 82 u/l (38-126); BUN 44 mg/dL (8-23); BUN/CREATININE RATIO 47 (12-20 (CALC)); CHLORIDE 81 mmol/l (95-108); CREATININE 0.9 mg/dL (0.5-1.0); GFR > 60 ML/MIN (>=60 (CALC)); GFR FOR AFR.AMER. > 60 ML/MIN (>=60 (CALC)); POTASSIUM 3.4 mmol/l (3.5-5.1); SGOT/AST 38 u/l (9-36); SODIUM 137 mmol/l (137-146); TOTAL PROTEIN 7.1 g/dL (6.3-8.2)
--- NOTE | 2021-02-04 09:14 | NUR ---
PT REQUESTING TO GET UP TO BEDSIDE COMMODE WITH HELP, WHILE THERE SHE IS INSISTING SHE GETS HER WASH UP AT THAT TIME, EVERYTHING PLACED AT TABLE BY BESIDE COMMODE. PT THANKING STAFF FOR HER CARE
[2021-02-04 09:29] LABS: ANION GAP 10 (6-22 (CALC)); CARBON DIOXIDE 49 mmol/l (22-30)
--- NOTE | 2021-02-04 10:44 | NUR ---
PT UP IN CHAIR; RECEIVING NEB TX. NO COMPLAINTS VOICED; CALL HKAN WITHIN REACH; WILL CONTINUE TO MONITOR.
--- NOTE | 2021-02-04 14:06 | NUR ---
pt placed back into bed with bipap on, sats dropped to 68. pt resting quietly at this time
--- NOTE | 2021-02-04 16:09 | NUR ---
PT RESTING IN BED BIPAP REMAINS ON.
--- NOTE | 2021-02-04 16:39 | NUR ---
BIPAP STANDBY. PLACED ON 10L HFNC.
--- NOTE | 2021-02-04 17:23 | NUR ---
PT SITTING UP IN BED WATCHING TV, HIGH FLOW NC ON AT THIS TIME 91%, NO DISCOMFORT AT THIS TIME
--- NOTE | 2021-02-04 19:40 | NUR ---
RESTING IN BED WITH EYES CLOSED. RESP NON-LABORED. O2 SAT 94% N O2 10 L HFNC. PATIENT AROUSES EASILY TO NAME. SHIFT ASSESSMENT COMPLETED. SR ON MONITOR. DISCUSSED PLAN OF CARE. DENIES NEEDS AT THIS TIME. CALL KHAN IN REACH.
--- NOTE | 2021-02-04 22:00 | NUR ---
WATHCING TV.NO COMPLAINTS VOICED. VSS. RESP NON-LABORED.O2 ON AT 8 L HFNC.O2 SAT 94%
[2021-02-05] VITALS (15 sets, daily range): BP systolic 82–117; BP diastolic 2–70
--- NOTE | 2021-02-05 00:10 | NUR ---
ASSISTED PATIENT UP TO CHAIR. PATIENT STATE SSHE IS NOT READY TO SLEEP AND DOES NOT WANT TO BE PLACED ON BIPAP FOR THE NIGHT YET.
--- NOTE | 2021-02-05 02:00 | NUR ---
REMAINS UP IN CHAIR WATCHING TV. NO C/O VOICED. O2 SAT 94% ON 8 L HFNC
--- NOTE | 2021-02-05 03:00 | NUR ---
ASSISTED BACK TO BED.
--- NOTE | 2021-02-05 03:50 | NUR ---
RESTING WITH EYES CLOSED. RESP NON-LABORED. VSS.
--- NOTE | 2021-02-05 04:10 | NUR ---
O2 DECREASED TO 6 L HFNC. O2 SATS HAVE MAINTAINED 93% OR GREATER.
--- NOTE | 2021-02-05 05:20 | NUR ---
PATIENT REFUSED THE BIPAP AFTER THE LAST TREATMENT. RN WILL CALL RT OTHERWISE.
[2021-02-05 05:38] LABS: HEMOGLOBIN 12.4 g/dl (12.0-16.0); IMMATURE GRANULOCYTES 0.5 % (0.0-5.0); MEAN CELL VOLUME 96.7 fL CALC (80.0-100.0); MEAN CORPUSCULAR HGB 29.2 pG CALC (26.0-32.0); MEAN CORPUSCULAR HGB CONC 30.2 g/dL CAL (32.0-36.0); NEUT# 6.71 thou/uL (2.00-7.15); RED BLOOD COUNT 4.24 mill/uL (4.20-5.60); RED CELL DISTRI WIDTH 15.6 % (11.5-15.5)
[2021-02-05 05:56] LABS: BUN 37 mg/dL (8-23); BUN/CREATININE RATIO 51 (12-20 (CALC)); CHLORIDE 86 mmol/l (95-108); CREATININE 0.7 mg/dL (0.5-1.0); GFR > 60 ML/MIN (>=60 (CALC)); GFR FOR AFR.AMER. > 60 ML/MIN (>=60 (CALC)); MAGNESIUM 2.1 mg/dL (1.6-2.3); POTASSIUM 3.1 mmol/l (3.5-5.1); SODIUM 136 mmol/l (137-146)
[2021-02-05 06:04] LABS: ANION GAP 9 (6-22 (CALC))
--- NOTE | 2021-02-05 06:06 | NUR ---
RESTING WITHOUT COMPLAINTS. EASILY AWAKENS TO NAME. VSS. O2 DECREASED TO 5 L HFNC. SR ON MONITOR.
[2021-02-05 06:13] LABS: CARBON DIOXIDE 44 mmol/l (22-30)
--- NOTE | 2021-02-05 06:51 | NUR ---
pt report received from assistant casino shift manager. pt resting quietly on bed. high flow at 5 sats 94%, assistant casino shift manager states pt was not on bipap at all last night because pt sat up in chair til 2 and didnt want bipap on and sats remained in the low 90's
--- NOTE | 2021-02-05 08:49 | NUR ---
asks to pass on in report to make sure that pt wears bipap at night, sats are 90% on 5 litres. he reiterated to pt that she must be wearing the bipap at night
--- NOTE | 2021-02-05 10:00 | NUR ---
PT REMAINS SITTING UP IN CHAIR, VITAL SIGNS STABLE, REMAINS ALERT/ORIENTED X3, SATS IN LOW 90'S ON 5 LITRES HIGH FLOW. HAS GOTTEN UP AND MOVED AROUND WITH HELP
--- NOTE | 2021-02-05 15:06 | NUR ---
PT SITTING UP IN CHAIR, WATCHING TV, DENIES ANY PAIN OR DISCOMFORT AT THIS TIME, BOWEL MOVEMENT TIMES X1, SATS 93% 02 @ 5 LITERS PER N/C
--- NOTE | 2021-02-05 18:35 | NUR ---
GERRI RECEIVED FROM SHAHNAZ MUNOZ.
--- NOTE | 2021-02-05 19:59 | NUR ---
PATIENT OOB TO CHAIR WATCHING TV. ALERT AND ORIENTED X3. VSS. SATURATION 91% ON HIGH FLOW NC @ 5L. NO DISTRESS NOTED AT THIS TIME. IV FOUND DISLODGED, CATHETER INTACT. MORRIS TO GRAVITY, PATENT. PATIENT DENIES PAIN AT THIS TIME. CALL LIGHT WITHIN REACH, INSTRUCTED TO CALL FOR ASSISTANCE.
--- NOTE | 2021-02-05 23:18 | NUR ---
REMAINS UP TO CHAIR, TOLERATING WELL.
[2021-02-06] VITALS (20 sets, daily range): BP systolic 84–110; BP diastolic 40–62
--- NOTE | 2021-02-06 00:10 | NUR ---
PATIENT C/O ABDOMINAL PAIN 5 ON SCALE 0-10, TYLENOL ADMINSTERED PER REQUEST. PATIENT ASSISTED BACK INTO BED. PATIENT PLACED ON BIPAP AT THIS TIME FOR HOURS OF SLEEP PER PHYSICIAN ORDERS.
--- NOTE | 2021-02-06 04:40 | NUR ---
RESTING QUIETLY EYES CLOSED. TOLERATING BIPAP WELL, SATURATION 95%. NO DISTRESS NOTED AT THIS TIME. CALL LIGHT WITHIN REACH.
--- NOTE | 2021-02-06 07:40 | NUR ---
RESTING IN BED CHEST RISING AND FALLING WITH BIPAP ON.
--- NOTE | 2021-02-06 08:15 | NUR ---
TAKEN OFF BIPAP AND PLACED ON NC HF 10L. PT TRANSFERRED INDEPENDENTLY FROM BED TO RECLINER.
--- NOTE | 2021-02-06 08:30 | NUR ---
SITTING UP IN RECLINER HAVING BREAKFAST.
--- NOTE | 2021-02-06 08:42 | NUR ---
DR FELICIA SAUCEDO ON PT.
--- NOTE | 2021-02-06 10:00 | NUR ---
UP TO BEDSIDE COMMODE INDEPENDENTLY. NO RESULTS.
--- NOTE | 2021-02-06 11:05 | NUR ---
RESTING IN RECLINER NO S/S OF DISCOMFORT NOTED.
--- NOTE | 2021-02-06 12:22 | NUR ---
SITTING UP IN RECLINER HAVING LUNCH.
--- NOTE | 2021-02-06 14:18 | NUR ---
UP TO BSC INDEPENDENTLY. BM X1
--- NOTE | 2021-02-06 16:30 | NUR ---
NO S/S OF DISTRESS NOTED.
--- NOTE | 2021-02-06 17:00 | NUR ---
SITTING UP IN RECLINER HAVING DINNER.
--- NOTE | 2021-02-06 18:19 | NUR ---
AMBULATING IN ROOM NO S/S OF DISTRESS NOTED.
--- NOTE | 2021-02-06 20:00 | NUR ---
sitting in bedside chair. pt is VERY obese. denies resp diff. o2 cont per nc. secured entrance monitor shows sinus rhythm hr 80. #22 lfa saline lock. po fluids taken well. zimmer cath in place. urine clear yellow. fall precautions cont.
--- NOTE | 2021-02-06 22:00 | NUR ---
remains in bedside chair. no resp distress. o2 cont per nc.
[2021-02-07] VITALS (11 sets, daily range): BP systolic 92–116; BP diastolic 45–79
--- NOTE | 2021-02-07 00:01 | NUR ---
awake. rt here. he requested pt in bed for bipap. refuses to go to bed. requests to stay in chair. bipap began while pt in chair.
--- NOTE | 2021-02-07 02:00 | NUR ---
eyes closed. remains in chair. bipap conts.
--- NOTE | 2021-02-07 04:15 | NUR ---
lab here. blood drawn.
[2021-02-07 05:58] LABS: HEMATOCRIT 40.5 % (37.0-47.0); HEMOGLOBIN 12.1 g/dl (12.0-16.0); IMMATURE GRANULOCYTES 0.5 % (0.0-5.0); MEAN CELL VOLUME 96.7 fL CALC (80.0-100.0); MEAN CORPUSCULAR HGB 28.9 pG CALC (26.0-32.0); MEAN CORPUSCULAR HGB CONC 29.9 g/dL CAL (32.0-36.0); NEUT# 7.96 thou/uL (2.00-7.15); RED BLOOD COUNT 4.19 mill/uL (4.20-5.60); RED CELL DISTRI WIDTH 15.4 % (11.5-15.5)
--- NOTE | 2021-02-07 06:00 | NUR ---
REMAINS IN CHAIR. NO DISTRESS.
[2021-02-07 06:15] LABS: ANION GAP 8 (6-22 (CALC)); BUN 28 mg/dL (8-23); BUN/CREATININE RATIO 43 (12-20 (CALC)); CARBON DIOXIDE 37 mmol/l (22-30); CHLORIDE 94 mmol/l (95-108); CREATININE 0.6 mg/dL (0.5-1.0); GFR > 60 ML/MIN (>=60 (CALC)); GFR FOR AFR.AMER. > 60 ML/MIN (>=60 (CALC)); POTASSIUM 3.7 mmol/l (3.5-5.1); SODIUM 135 mmol/l (137-146)
--- NOTE | 2021-02-07 06:48 | NUR ---
REPORT RECEIVED FROM CUSTOM APPLICATOR, PT SITTING UP IN BED NC ON 5 LITRES, SATS 95%, CALL LIGHT WITHIN REACH PT DENIES ANY COMPLAINTS AT THIS TIME
--- NOTE | 2021-02-07 10:59 | NUR ---
PT REMAINS SITTING UP IN CHAIR, DENIES ANY COMPLAINTS, SATS REMAIN IN THE 90'S, ALERT/ORIENTED X3, DENIES ANY DISCOMFORT SINCE MORRIS HAS BEEN REMOVED. ASKED FOR COFFEE AND WAS GIVEN VITAL SIGNS STABLE
--- NOTE | 2021-02-07 12:16 | NUR ---
PT SITTING UP IN CHAIR, NO COMPLAINTSS AT THIS TIME. VITAL SIGNS REMAIN STABLE.
--- NOTE | 2021-02-07 15:19 | NUR ---
AT BEDSIDE. PT REMAINS SITTING IN CHAIR
--- NOTE | 2021-02-07 17:30 | NUR ---
pt sitting up in chair, no complaints no distress noted. vital signs remain stable. eating supper.
--- NOTE | 2021-02-07 19:00 | NUR ---
awake. sitting in bedside chair. o2 cont perhfnc. athletic monitor shows sinus rhythm hr 85. #22 lfa saline lock. voids per bsc. fall precautions cont.
--- NOTE | 2021-02-07 22:00 | NUR ---
remains in bedside chair. denies distress.
[2021-02-08] VITALS (16 sets, daily range): BP systolic 94–135; BP diastolic 52–73
--- NOTE | 2021-02-08 00:01 | NUR ---
in bed. eyes closed. bipap on.
--- NOTE | 2021-02-08 02:00 | NUR ---
resting quietly. resps even & unlabored. no apparent distress.
--- NOTE | 2021-02-08 04:30 | NUR ---
lab here. blood drawn.
--- NOTE | 2021-02-08 06:00 | NUR ---
bipap cont. ultrasound technologist sonographer shows sinus rhythm .
--- NOTE | 2021-02-08 06:45 | NUR ---
REPORT FROM OMAR JOHNS. ASSUMED PT CARE.
--- NOTE | 2021-02-08 07:26 | NUR ---
RT AT BEDSIDE TO REMOVE BIPAP AND APPLY HIGHFLOW NC @ 5L/M. PT WAKES EASILY. ALERT AND ORIENTED X3. NO APPARENT DISTRESS NOTED. PT DENIES ANY PAIN OR DISCOMFORT. VSS. DISCUSSED POC AND SAFETY PRECAUTIONS. PT VERBALIZED UNDERSTANDING. CALL LIGHT WITHIN REACH. WILL CONTINUE TO MONITOR.
--- NOTE | 2021-02-08 08:12 | NUR ---
PT OOB TO [facility].
--- NOTE | 2021-02-08 09:23 | NUR ---
SET PT UP FOR BATH UPON REQUEST. PT DENIES ANY NEED FOR ASSISTANCE. CLEAN GOWN AND LINENS ALSO PROVIDED AT THIS TIME. CALL LIGHT WITHIN REACH. WILL CONTINUE TO MONITOR.
--- NOTE | 2021-02-08 11:45 | NUR ---
PT SITTING UP IN CHAIR EATING LUNCH. NO APPARENT DISTRESS NOTED. O2 @ 5L/M VIA HIGHFLOW NC. NO CURRENT WANTS OR NEEDS. CALL LIGHT WITHIN REACH. WILL CONTINUE TO MONITOR.
--- NOTE | 2021-02-08 13:57 | NUR ---
PT RESTING IN CHAIR AT BEDSIDE. NO APPARENT DISTRESS NOTED. VSS. CALL LIGHT WITHIN REACH. WILL CONTINUE TO MONITOR.
--- NOTE | 2021-02-08 15:24 | NUR ---
RT AT BEDSIDE TO ADMINISTER NEB TREATMENT.
--- NOTE | 2021-02-08 17:24 | NUR ---
PT SITTING UP IN CHAIR. NO APPARENT DISTRESS NOTED. VSS. CALL LIGHT WITHIN REACH. WILL CONTINUE TO MONITOR.
--- NOTE | 2021-02-08 20:00 | NUR ---
sitting in bedside chair texting. denies distress. o2 cont. ardiac monitor shows sinus rhythm hr 80. #22 lfa saline lock. voids per bsc. fall precautions cont.
--- NOTE | 2021-02-08 22:00 | NUR ---
remains in bedside chair. no distress.
[2021-02-09] VITALS (16 sets, daily range): BP systolic 100–138; BP diastolic 54–71
--- NOTE | 2021-02-09 00:01 | NUR ---
bipap on per rt.
--- NOTE | 2021-02-09 02:00 | NUR ---
resting quietly. resps even & unlabored.
--- NOTE | 2021-02-09 04:00 | NUR ---
eyes closed. no distress. software manager shows sinus rhythm hr 62.
--- NOTE | 2021-02-09 05:56 | NUR ---
eyes closed. bipap cont. no distress.
--- NOTE | 2021-02-09 07:10 | NUR ---
RT IN WITH PT. TAKEN OFF BIPAP NOW USING NC 5L.
--- NOTE | 2021-02-09 07:17 | NUR ---
PT PLACED ON HFNC OF 5 LITERS. BIPAP ON STANDBY.
--- NOTE | 2021-02-09 08:10 | NUR ---
UP TO RECLINER INDEPENDENTLY FOR BREAKFAST.
--- NOTE | 2021-02-09 09:25 | NUR ---
MEDS GIVEN PERSON EMAR TOLERATED WELL.
--- NOTE | 2021-02-09 09:34 | NUR ---
DR KAUR IN ROUNDING WITH PT.
[2021-02-09 09:56] LABS: HEMATOCRIT 41.1 % (37.0-47.0); HEMOGLOBIN 11.8 g/dl (12.0-16.0); IMMATURE GRANULOCYTES 0.5 % (0.0-5.0); MEAN CELL VOLUME 100.2 fL CALC (80.0-100.0); MEAN CORPUSCULAR HGB 28.8 pG CALC (26.0-32.0); MEAN CORPUSCULAR HGB CONC 28.7 g/dL CAL (32.0-36.0); NEUT# 6.14 thou/uL (2.00-7.15); RED BLOOD COUNT 4.1 mill/uL (4.20-5.60); RED CELL DISTRI WIDTH 15.6 % (11.5-15.5)
[2021-02-09 10:10] LABS: ANION GAP 10 (6-22 (CALC)); BUN 22 mg/dL (8-23); BUN/CREATININE RATIO 33 (12-20 (CALC)); CARBON DIOXIDE 34 mmol/l (22-30); CHLORIDE 99 mmol/l (95-108); CREATININE 0.7 mg/dL (0.5-1.0); GFR > 60 ML/MIN (>=60 (CALC)); GFR FOR AFR.AMER. > 60 ML/MIN (>=60 (CALC)); POTASSIUM 3.8 mmol/l (3.5-5.1); SODIUM 139 mmol/l (137-146)
--- NOTE | 2021-02-09 11:15 | NUR ---
SITTING UP IN RECLINER HAVING LUNCH.
--- NOTE | 2021-02-09 13:01 | NUR ---
CASE MANGEMENT IN MAKING PT AWARE [employer]OLGY MACHINE SHOULD ARRIVE SHORTY TO HER RESIDENCE WITH AN RT TO PROVIDE IN HOME EDUCATION ON USE.
--- NOTE | 2021-02-09 15:23 | NUR ---
SITTING UP IN RECLINER. RT IN WITH PT AT THIS TIME.
--- NOTE | 2021-02-09 16:15 | NUR ---
in to worm picker pt. d/c instructions provided and recieved well. piv to lt fa removed pt tolerated well.
--- NOTE | 2021-02-09 16:20 | NUR ---
TRANSFERRED VIA W/C AND O2 TANK OFF OF UNIT SAFELY ACCOMPANIED BY STAFF AND .
== END 2021-02-09 16:20 | disposition home health service (06) | DRG 189 ==
LOC: ED 19:08 → ED-I 21:12 → ED 21:39 → ICU 21:40
PROVIDERS: Emergency Medicine; Internal Medicine; ADMIT Hospitalist; ATTEND Hospitalist
PROC: 5A09357 Assistance with Respiratory Ventilation, Less than 24 Consecutive Hours, Continuous Positive Airway Pressure (ICD-10-PCS; principal; 2021-01-30)
PROC: 0T9B70Z Drainage of Bladder with Drainage Device, Via Natural or Artificial Opening (ICD-10-PCS; 2021-01-30)
DX: J96.22 Acute and chronic respiratory failure with hypercapnia (principal); E66.2 Morbid (severe) obesity with alveolar hypoventilation; Z68.41 Body mass index [BMI] 40.0-44.9, adult; E87.2 Acidosis; J96.21 Acute and chronic respiratory failure with hypoxia; I11.0 Hypertensive heart disease with heart failure; I50.9 Heart failure, unspecified; E11.9 Type 2 diabetes mellitus without complications; J45.909 Unspecified asthma, uncomplicated; K21.9 Gastro-esophageal reflux disease without esophagitis; E87.6 Hypokalemia; Z99.81 Dependence on supplemental oxygen; Z87.01 Personal history of pneumonia (recurrent); Z79.84 Long term (current) use of oral hypoglycemic drugs; Z78.1 Physical restraint status; Z20.822 Contact with and (suspected) exposure to COVID-19
CPT/HCPCS: J1650; S0166

== ENCOUNTER 2022-10-14 13:45 | Inpatient (IN) | payer MEDICARE, MEDICAID ==
[~2022-10-14] VITALS: Ht 149.9 cm; Wt 102.6 kg
[2022-10-14] VITALS (13 sets, daily range): BP systolic 123–164; BP diastolic 63–88
[2022-10-14 14:54] LABS: BASO% 0.4 % (0-3); HEMATOCRIT 46.5 % (37.0-47.0); IMMATURE GRANULOCYTES 0.6 % (0.0-5.0); LYMPH% 18.7 % (15-41); MEAN CELL VOLUME 98.3 fL CALC (80.0-100.0); MEAN CORPUSCULAR HGB 29.2 pG CALC (26.0-32.0); MEAN CORPUSCULAR HGB CONC 29.7 g/dL CAL (32.0-36.0); MONO% 7.6 % (2-13); NEUT# 8.9 thou/uL (2.00-7.15); NEUT% 71.7 % (42-76); RED BLOOD COUNT 4.73 mill/uL (4.20-5.60); RED CELL DISTRI WIDTH 13.9 % (11.5-15.5)
[2022-10-14 15:11] LABS: ALBUMIN 3.9 g/dL (3.2-5.0); ALKALINE PHOSPHATASE 93 u/l (38-126); ANION GAP 9 (6-22 (CALC)); BILIRUBIN, TOTAL 0.6 mg/dL (0.02-1.3); BUN 18 mg/dL (8-23); BUN/CREATININE RATIO 24 (12-20 (CALC)); CARBON DIOXIDE 39 mmol/l (22-30); CHLORIDE 98 mmol/l (95-108); CREATININE 0.8 mg/dL (0.5-1.0); GFR FOR AFR.AMER. > 60 ML/MIN (>=60 (CALC)); GFR OTHER RACES > 60 ML/MIN (>=60 (CALC)); POTASSIUM 4.4 mmol/l (3.5-5.1); SGOT/AST 57 u/l (9-36); SODIUM 142 mmol/l (137-146); TOTAL PROTEIN 8.1 g/dL (6.3-8.2)
[2022-10-14 15:17] LABS: HEMOGLOBIN 13.8 g/dl (12.0-16.0)
[2022-10-14 15:18] LABS: D-DIMER 0.96 mg/L (0.19-0.60)
[2022-10-14 15:27] LABS: INTERNATIONAL NORMALIZED RATIO 1.1 RATIO (0.7-1.3); PROTHROMBIN TIME 10.5 SECONDS (9.0-12.5)
[2022-10-14 16:09] LABS: URINE BILIRUBIN - DIPSTICK Negative (NEGATIVE); URINE BLOOD DIPSTICK Negative (NEGATIVE); URINE GLUCOSE - DIPSTICK Negative (NEGATIVE); URINE KETONE Negative (NEGATIVE); URINE LEUK ESTERASE Negative (NEGATIVE); URINE NITRITE - DIPSTICK Negative (Negative); URINE PH 6.5 (4.5-8.0); URINE PROTEIN - DIPSTICK Negative (NEG-TRACE); URINE UROBILINOGEN - DIPSTICK 0.2 E.U./dL (0.2)
[2022-10-14 16:13] LABS: URINE COLOR Yellow
[2022-10-15] VITALS (8 sets, daily range): BP systolic 107–131; BP diastolic 60–73
[2022-10-15 06:23] LABS: HEMATOCRIT 44.4 % (37.0-47.0); HEMOGLOBIN 13.1 g/dl (12.0-16.0); MEAN CELL VOLUME 96.5 fL CALC (80.0-100.0); MEAN CORPUSCULAR HGB 28.5 pG CALC (26.0-32.0); MEAN CORPUSCULAR HGB CONC 29.5 g/dL CAL (32.0-36.0); RED BLOOD COUNT 4.6 mill/uL (4.20-5.60); RED CELL DISTRI WIDTH 13.8 % (11.5-15.5)
[2022-10-15 06:42] LABS: ANION GAP 10 (6-22 (CALC)); BUN 18 mg/dL (8-23); BUN/CREATININE RATIO 27 (12-20 (CALC)); CALCULATED LDLCHOLESTEROL 111 mg/dL (62-129 (CALC)); CARBON DIOXIDE 39 mmol/l (22-30); CHLORIDE 95 mmol/l (95-108); CHOLESTEROL HDL RATIO 3.1 (<4.4 (CALC)); CREATININE 0.7 mg/dL (0.5-1.0); GFR FOR AFR.AMER. > 60 ML/MIN (>=60 (CALC)); GFR OTHER RACES > 60 ML/MIN (>=60 (CALC)); HDL CHOLESTEROL 59 mg/dL (39.0-59.0); MAGNESIUM 2.2 mg/dL (1.6-2.3); POTASSIUM 4.3 mmol/l (3.5-5.1); SODIUM 140 mmol/l (137-146); TOTAL TRIGLYCERIDES 60 mg/dl (0-149); VLDL CHOLESTROL 12 mg/dl (1-41 (CALC))
[2022-10-15 06:52] LABS: TOTAL CHOLESTEROL 182 mg/dl (0-199)
[2022-10-16 00:20] VITALS: BP 115/64
[2022-10-16 04:25] VITALS: BP 109/63
[2022-10-16 05:26] LABS: HEMOGLOBIN 13.1 g/dl (12.0-16.0); MEAN CELL VOLUME 96.6 fL CALC (80.0-100.0); MEAN CORPUSCULAR HGB 29.4 pG CALC (26.0-32.0); MEAN CORPUSCULAR HGB CONC 30.5 g/dL CAL (32.0-36.0); RED BLOOD COUNT 4.45 mill/uL (4.20-5.60); RED CELL DISTRI WIDTH 14.1 % (11.5-15.5)
[2022-10-16 05:41] LABS: ALBUMIN 3.4 g/dL (3.2-5.0); ALKALINE PHOSPHATASE 84 u/l (38-126); ANION GAP 10 (6-22 (CALC)); BILIRUBIN, TOTAL 0.5 mg/dL (0.02-1.3); BUN 28 mg/dL (8-23); BUN/CREATININE RATIO 33 (12-20 (CALC)); CARBON DIOXIDE 38 mmol/l (22-30); CHLORIDE 94 mmol/l (95-108); CREATININE 0.8 mg/dL (0.5-1.0); GFR FOR AFR.AMER. > 60 ML/MIN (>=60 (CALC)); GFR OTHER RACES > 60 ML/MIN (>=60 (CALC)); MAGNESIUM 2.3 mg/dL (1.6-2.3); POTASSIUM 4.5 mmol/l (3.5-5.1); SGOT/AST 29 u/l (9-36); SODIUM 138 mmol/l (137-146)
[2022-10-16 10:27] VITALS: BP 113/63
[2022-10-16 13:36] VITALS: BP 128/76
[2022-10-16 19:45] VITALS: BP 94/48
[2022-10-17] VITALS (20 sets, daily range): BP systolic 100–140; BP diastolic 52–88
[2022-10-17] MEDS ORDERED: PREDNISONE10 MG PO (16:01)
[2022-10-17 19:15] LABS: BASO% 0.1 % (0-3); HEMATOCRIT 47.6 % (37.0-47.0); IMMATURE GRANULOCYTES 0.3 % (0.0-5.0); LYMPH% 12.1 % (15-41); MEAN CORPUSCULAR HGB 28.2 pG CALC (26.0-32.0); MEAN CORPUSCULAR HGB CONC 29.4 g/dL CAL (32.0-36.0); MONO% 4.1 % (2-13); NEUT# 14.12 thou/uL (2.00-7.15); NEUT% 83.4 % (42-76); RED BLOOD COUNT 4.96 mill/uL (4.20-5.60); RED CELL DISTRI WIDTH 13.8 % (11.5-15.5)
[2022-10-17 19:21] LABS: ALBUMIN 3.8 g/dL (3.2-5.0); BILIRUBIN, TOTAL 0.6 mg/dL (0.02-1.3); CREATININE 1.1 mg/dL (0.5-1.0); POTASSIUM 4.4 mmol/l (3.5-5.1); TOTAL PROTEIN 7.5 g/dL (6.3-8.2)
[2022-10-18] VITALS (28 sets, daily range): BP systolic 88–125; BP diastolic 47–69
[2022-10-18 09:22] LABS: HEMOGLOBIN 14.1 g/dl (12.0-16.0); MEAN CELL VOLUME 96.6 fL CALC (80.0-100.0); MEAN CORPUSCULAR HGB 28.4 pG CALC (26.0-32.0); MEAN CORPUSCULAR HGB CONC 29.4 g/dL CAL (32.0-36.0); RED BLOOD COUNT 4.97 mill/uL (4.20-5.60); RED CELL DISTRI WIDTH 13.9 % (11.5-15.5)
[2022-10-18 09:31] LABS: ALBUMIN 3.7 g/dL (3.2-5.0); ALKALINE PHOSPHATASE 80 u/l (38-126); ANION GAP 17 (6-22 (CALC)); BILIRUBIN, TOTAL 0.6 mg/dL (0.02-1.3); BUN 43 mg/dL (8-23); BUN/CREATININE RATIO 44 (12-20 (CALC)); CARBON DIOXIDE 39 mmol/l (22-30); CHLORIDE 87 mmol/l (95-108); GFR FOR AFR.AMER. > 60 ML/MIN (>=60 (CALC)); GFR OTHER RACES 55 ML/MIN (>=60 (CALC)); MAGNESIUM 2.4 mg/dL (1.6-2.3); POTASSIUM 4.5 mmol/l (3.5-5.1); SGOT/AST 64 u/l (9-36); SODIUM 138 mmol/l (137-146); TOTAL PROTEIN 7.3 g/dL (6.3-8.2)
[2022-10-19] VITALS (23 sets, daily range): BP systolic 94–136; BP diastolic 49–82
[2022-10-19 05:28] LABS: HEMATOCRIT 46.1 % (37.0-47.0); HEMOGLOBIN 14.2 g/dl (12.0-16.0); MEAN CELL VOLUME 93.5 fL CALC (80.0-100.0); MEAN CORPUSCULAR HGB 28.8 pG CALC (26.0-32.0); MEAN CORPUSCULAR HGB CONC 30.8 g/dL CAL (32.0-36.0); RED BLOOD COUNT 4.93 mill/uL (4.20-5.60); RED CELL DISTRI WIDTH 13.7 % (11.5-15.5)
[2022-10-19 05:56] LABS: ALBUMIN 3.5 g/dL (3.2-5.0); ALKALINE PHOSPHATASE 78 u/l (38-126); ANION GAP 15 (6-22 (CALC)); BILIRUBIN, TOTAL 0.8 mg/dL (0.02-1.3); BUN 37 mg/dL (8-23); BUN/CREATININE RATIO 44 (12-20 (CALC)); CARBON DIOXIDE 39 mmol/l (22-30); CHLORIDE 85 mmol/l (95-108); CREATININE 0.8 mg/dL (0.5-1.0); GFR FOR AFR.AMER. > 60 ML/MIN (>=60 (CALC)); GFR OTHER RACES > 60 ML/MIN (>=60 (CALC)); MAGNESIUM 2.3 mg/dL (1.6-2.3); SGOT/AST 46 u/l (9-36); SODIUM 135 mmol/l (137-146); TOTAL PROTEIN 7.3 g/dL (6.3-8.2)
[2022-10-20] VITALS (16 sets, daily range): BP systolic 96–124; BP diastolic 56–77
[2022-10-20 05:49] LABS: HEMATOCRIT 45.7 % (37.0-47.0); HEMOGLOBIN 14.1 g/dl (12.0-16.0); MEAN CELL VOLUME 92.1 fL CALC (80.0-100.0); MEAN CORPUSCULAR HGB 28.4 pG CALC (26.0-32.0); MEAN CORPUSCULAR HGB CONC 30.9 g/dL CAL (32.0-36.0); RED BLOOD COUNT 4.96 mill/uL (4.20-5.60); RED CELL DISTRI WIDTH 13.6 % (11.5-15.5)
[2022-10-20 06:00] LABS: ALBUMIN 3.6 g/dL (3.2-5.0); ALKALINE PHOSPHATASE 80 u/l (38-126); ANION GAP 14 (6-22 (CALC)); BILIRUBIN, TOTAL 0.8 mg/dL (0.02-1.3); BUN 39 mg/dL (8-23); BUN/CREATININE RATIO 46 (12-20 (CALC)); CARBON DIOXIDE 39 mmol/l (22-30); CHLORIDE 87 mmol/l (95-108); CREATININE 0.9 mg/dL (0.5-1.0); GFR FOR AFR.AMER. > 60 ML/MIN (>=60 (CALC)); GFR OTHER RACES > 60 ML/MIN (>=60 (CALC)); MAGNESIUM 2.4 mg/dL (1.6-2.3); POTASSIUM 3.9 mmol/l (3.5-5.1); SGOT/AST 37 u/l (9-36); SODIUM 135 mmol/l (137-146)
[2022-10-21 01:00] VITALS: BP 106/57
[2022-10-21 02:00] VITALS: BP 102/56
[2022-10-21 04:00] VITALS: BP 107/63
[2022-10-21 05:00] VITALS: BP 103/57
[2022-10-21 06:00] VITALS: BP 109/62
== END 2022-10-21 12:33 | DRG 189 ==
LOC: ED 13:45 → ED-I 15:40 → ED 15:46 → MS2 15:47 → ICU 10-17 18:51
PROVIDERS: Family Medicine; ADMIT Student in an Organized Health Care Education/Training Program; ATTEND Student in an Organized Health Care Education/Training Program
PROC: 5A09357 Assistance with Respiratory Ventilation, Less than 24 Consecutive Hours, Continuous Positive Airway Pressure (ICD-10-PCS; principal; 2022-10-17)
DX: J96.22 Acute and chronic respiratory failure with hypercapnia (principal); I50.31 Acute diastolic (congestive) heart failure; J44.1 Chronic obstructive pulmonary disease with (acute) exacerbation; E66.2 Morbid (severe) obesity with alveolar hypoventilation; Z68.43 Body mass index [BMI] 50.0-59.9, adult; I11.0 Hypertensive heart disease with heart failure; J96.21 Acute and chronic respiratory failure with hypoxia; E11.51 Type 2 diabetes mellitus with diabetic peripheral angiopathy without gangrene; I27.20 Pulmonary hypertension, unspecified; K21.9 Gastro-esophageal reflux disease without esophagitis; I83.93 Asymptomatic varicose veins of bilateral lower extremities; I36.1 Nonrheumatic tricuspid (valve) insufficiency; Z99.81 Dependence on supplemental oxygen; Z79.84 Long term (current) use of oral hypoglycemic drugs
CPT/HCPCS: J1650; Q9967